=== PATIENT | female | born 1970 | race Caucasian/White ===

== ENCOUNTER → 2020-08-18 09:10 | Outpatient (CLI) | payer OTHER, BC, SELFPAY ==
[2020-08-18 09:29] LABS: Bacteria 0 SEEN /hpf (None Seen); Mucous, Urine 0 SEEN /hpf (<or=2+); Red Blood Cells-Urine 0 SEEN /hpf (0-5); White Blood Cells 0 SEEN /hpf (0-5)
[2020-08-18 12:23] LABS: Absolute Lymphocyte Count 1.49 X10^3/uL (0.83-4.51); Absolute Neutrophil Count 3.3 X10^3/uL (2.0-7.7); Basophil# 0.03 X10^3/uL; Basophil% 0.5 % (0-1); Eosinophil# 0.06 X10^3/uL; Eosinophils% 1.1 % (0-5); Hematocrit 38.4 % (37-47); Hemoglobin 13.1 g/dL (12.0-15.0); Lymphocyte # 1.49 X10^3/ul (4.0); Lymphocyte % 26.7 % (19-41); Mean Corp Hgb Conc 34.1 g/dL (32-36); Mean Corpuscular Volume 93.7 fL (81-99); Mean Platelet Vol. 9.5 fl (6.2-12.0); Monocyte# 0.65 X10^3/uL; Monocyte% 11.6 % (0-10); NRBC Flagged by Analyzer 0 % (0-5); Neutrophil # 3.34 X10^3/uL (2.7-7.7); Neutrophil % 59.7 % (47-70); Platelet Count 324 K/mm3 (150-450); RBC Distribution Width CV 12.1 % (11.6-14.6); RBC Distribution Width SD 42.1 fl (35.1-43.9); White Blood Count 5.6 K/mm3 (4.4-11.0)
[2020-08-18 12:30] LABS: Color, Urine Yellow (Yellow); Glucose, Dipstick Normal (Normal); Ketone-Dipstick Negative (Negative); Leukocyte Esterase-Dipstick Negative /ul (Negative); Nitrite-Dipstick Negative (Negative); Occult Blood-Urine Negative /ul (Negative); Protein-Dipstick Negative (Negative); Urine Bilirubin Dipstick Negative (Negative); Urine Clarity Clear (Clear); Urine Urobilinogen Normal (Normal)
[2020-08-18 12:37] LABS: ALB/GLOB Ratio 1.1 RATIO (0.9-2.4); AST(SGOT) 12 U/L (15-37); Alanine Aminotransfer ALT/SGPT 22 U/L (13-56); Alkaline Phosphatase 82 U/L (45-117); Anion Gap 5 (5-15); BUN 12 mg/dL (7-18); Calcium,Total 8.8 mg/dL (8.5-10.1); Chloride 105 mmol/L (98-107); Creatinine, Serum 0.63 mg/dL (0.55-1.02); EST Glomerular Filtration Rate 106 mL/min (>60); Est Glom Filt Rate - Afr Amer 128 mL/min (>60); Globulin 3.7 g/dL (2.2-4.2); Glucose 86 mg/dL (74-106); Protein, Total 7.7 g/dL (6.4-8.2); Sodium Level 137 mmol/L (136-145)
[2020-08-18 12:41] LABS: Squamous Epithelial Cells - UA 5-10 SEEN /hpf (5-10)
[2020-08-21 12:08] LABS: SJOGREN'S Anti-SS-A test < 0.2 AI (0.0-0.9); SJOGREN'S Anti-SS-B test < 0.2 AI (0.0-0.9); Smith Ab <0.2 AI (0.0-0.9)
[2020-08-21 20:15] LABS: Anti-Nuclear Antibody Test Negative (.); Anti-dsDNA Ab 2 IU/mL (0-9)
== END ==
PROVIDERS: Referring Provider Dermatology; Visit Provider Dermatology
DX: L93.1 Subacute cutaneous lupus erythematosus (principal)
CPT/HCPCS: 36415; 80053; 81001; 85025; 86038; 86225; 86235

== ENCOUNTER 2024-02-27 21:38 | Emergency (ER) | payer BC, SELFPAY ==
[2024-02-27 21:39] VITALS: BP 149/78; PULSE 51; RESP 17; TEMP 36.6; O2SAT 100; BMI 29.5
--- NOTE | 2024-02-27 22:08 | CT_ITS ---
STUDY: CT ABDOMEN AND PELVIS WITH CONTRAST REASON FOR EXAM: Female, 53 years old. RLQ abd pain RADIATION DOSAGE (If Supplied By Facility): CTDIvol = ( 14.32 ) mGy, DLP = ( 746.13 ) mGycm TECHNIQUE: IV 100mL Isovue-370 was administered. Transaxial images were obtained from the dome of the diaphragm to the symphysis pubis in the portal venous phase. Multiplanar coronal and sagittal images were reformatted. Individualized Dose Optimization Techniques Were Used For This CT. COMPARISON: No relevant prior comparison study available FINDINGS: LOWER CHEST: Lung bases are clear. No cardiomegaly or pericardial effusion. LIVER: The liver is normal in size, shape, and attenuation. No focal mass. GALLBLADDER AND BILIARY TREE: The gallbladder is normally distended. No gallstones. No gallbladder wall thickening or edema. No pericholecystic fluid. No intra- or extrahepatic biliary ductal dilation. PANCREAS: No focal cystic or solid mass. SPLEEN: Normal size without focal cystic or solid mass. ADRENAL GLANDS: No nodules. KIDNEYS AND URETERS: Normal renal size and position. No hydronephrosis or nephrolithiasis. PERITONEUM: No ascites or free air. No other fluid collection. BOWEL: The stomach is unremarkable. Normal caliber small bowel. There is no obstruction. No colonic wall thickening or inflammation. Moderate diffuse colonic stool burden. No evidence of acute appendicitis. LYMPH NODES: No enlarged mesenteric or retroperitoneal lymph nodes. VESSELS: The aorta is normal in caliber with mild atherosclerotic calcification. URINARY BLADDER: Unremarkable. REPRODUCTIVE ORGANS: Anteverted uterus with heterogeneous enhancement suggestive of fibroids. No suspicious adnexal mass identified. ABDOMINAL WALL: No discrete abdominal or pelvic wall hernia. BONES: No lytic or blastic abnormality. Mild degenerative changes throughout the spine. CT/Abdomen/Pelvis W IV Cont ONLY IMPRESSION: No acute finding in the abdomen or pelvis. Normal appendix. Moderate colonic stool burden diffusely. Heterogeneous lobulation of the uterus suggestive of fibroid.. Electronically Signed: Parrish Wilcox MD at 23:40 EDT ,
--- NOTE | 2024-02-27 22:18 | EDS_ITS ---
HPI History of Present Illness Chief Complaint: Abd Pain Informant: patient and family Narrative Narrative: Patient is a 53-year-old female with past medical history of hypertension and depression. She states that a few hours ago she noticed some pain in the right lower abdomen. She states she is nauseated but denies any vomiting. She denies any dysuria or hematuria and she denies any loose stool or diarrhea. She states there is been no trauma or excessive activity. However despite resting and taking [id number] medications the pain has persisted and secondary to this she comes in for evaluation. [facility] Medical History Depression Former smoker Hypertension Home Medications ?Medication ?Instructions ?Recorded ?Last Taken ?Type buspirone 10 mg tablet 10 mg PO DAILY 02/27/24 Unknown History desvenlafaxine succinate 50 mg 50 mg PO DAILY 02/27/24 Unknown History tablet,extended release 24 hr hydrochlorothiazide 25 mg tablet 25 mg PO DAILY 02/27/24 Unknown History losartan 100 mg tablet 100 mg PO DAILY 02/27/24 Unknown History meloxicam 15 mg tablet 15 mg PO DAILY PRN pain 02/27/24 Unknown History tizanidine 4 mg tablet 4 mg PO QHS 02/27/24 Unknown History valacyclovir 500 mg tablet 500 mg PO DAILY 02/27/24 Unknown History oxycodone-acetaminophen 5 mg-325 1 tab PO Q6H PRN pain 3 days #12 02/28/24 Unknown Rx mg tablet (Percocet) tabs Allergy/AdvReac Type Severity Reaction Status Date / Time Sulfa (Sulfonamide Allergy Mild Itching Verified 02/27/24 21:39 Antibiotics) Surgical History (Updated 02/27/24 @ 21:55 by Amelia Miranda) History of Social History Smoking Status: Former smoker ROS ROS ED Constitutional Constitutional ED: Denies chills or fever(s) ENT ENT ED: Denies sore throat Cardiovascular Cardiovascular: Denies chest pain Respiratory/Chest Respiratory/Chest: Denies cough or dyspnea Gastrointestinal Gastrointestinal: Reports abdominal pain and nausea; Denies diarrhea or vomiting Genitourinary Genitourinary ED: Denies dysuria or hematuria Musculoskeletal Musculoskeletal: Denies back pain or myalgias Integumentary Denies rash Neurologic Neurologic: Denies headache(s) Hematologic/Lymphatic Hematologic/Lymphatic: Denies easy bleeding or easy bruising EXAM Physical Exam Const Vital Signs: 02/27/24 21:39 Temperature 97.8 F Temperature Source Temporal Pulse Rate 51 L Respiratory Rate 17 Blood Pressure 149/78 H Blood Pressure Mean 101 Pulse Ox 100 Oxygen Delivery Method Room Air Positive well nourished and well developed General Appearance ED: well developed; Negative for pallor HEENT HEENT Narrative: Normocephalic atraumatic Eyes PERRL and EOMs intact bilaterally General Eye ED: Negative for scleral icterus Neck supple Neck Narrative: No nuchal rigidity or meningeal signs Resp normal respiratory effort and clear to auscultation bilaterally Cardio regular rhythm Rate: bradycardia and other Other Details: Bradycardic rate with regular rhythm No murmurs rubs or gallop Radial and carotid pulses equal and symmetric GI non-distended and no masses GI Narrative: Abdomen is soft and nondistended with normal active bowel sounds. Patient has pain with palpation in the right lower quadrant over top McBurney's point with voluntary guarding. No rebound noted. Negative heel strike but positive psoas sign. No peritoneal signs. No pulsatile mass Auscultation: normoactive bowel sounds Palpation: soft Back/Spine no CVA tenderness Extremity normal to inspection Neuro oriented x3, CN's II-XII intact bilaterally and no sensory deficits noted Sensorium / Orientation: alert Motor Exam: strength 5/5 throughout Psych mental status grossly normal Skin no rashes or lesions noted General Skin Exam: Negative for jaundice or pallor MDM MDM MDM Narrative Medical decision making narrative: Patient arrived to the ER mildly hypertensive otherwise with stable vitals. She reported pain in the right lower abdomen without trauma. Differential diagnosis is for UTI versus pyelonephritis versus kidney stone versus appendicitis versus colitis versus atypical biliary colic or acute cholecystitis versus musculoskeletal strain versus ovarian cyst or uterine fibroid. Secondary to his basic labs and a CT scan with IV contrast were. Lab revealed no clinically significant findings and urine showed no sign of infection or blood. CT scan d ocumented mild constipation but otherwise no acute abdominal or pelvic pathology. On reevaluation the patient is resting comfortably she has had resolution of her pain after given morphine in the ER and as her vitals are stable and workup is negative I do not feel there is need for further testing or admission and she is otherwise safe for discharge and can follow-up on an outpatient basis History & Record Review Discussion w/independent historian: Patient Lab Data Attestation: I reviewed the patient's lab results. Labs: Laboratory Results - last 24 hr 02/27/24 02/27/24 22:25 22:40 WBC 6.5 RBC 3.87 L Hgb 12.2 Hct 35.9 L MCV 92.8 MCH 31.5 MCHC 34.0 RDW Std Deviation 44.3 H RDW Coeff of Torres 13.0 Plt Count 229 MPV 9.9 Immature Gran % (Auto) 0.300 Neut % (Auto) 63.2 Lymph % (Auto) 23.7 Wake % (Auto) 11.0 H Eos % (Auto) 1.2 Baso % (Auto) 0.6 Absolute Neuts (auto) 4.1 Absolute Lymphs (auto) 1.53 Nucleated RBC % 0 Sodium 142 Potassium 3.7 Chloride 108 H Carbon Dioxide 27.0 Anion Gap 7 BUN 25 H Creatinine 0.68 Estim Creat Clear Calc 85.22 Est GFR (MDRD) Af Amer 116 Est GFR (MDRD) Non-Af 96 BUN/Creatinine Ratio 36.9 H Glucose 96 Lactic Acid 0.7 Calcium 8.7 Total Bilirubin 0.40 Direct Bilirubin 0.12 AST 19 ALT 79 H Alkaline Phosphatase 121 H Total Protein 7.0 Albumin 3.5 Globulin 3.5 Lipase 24 Urine Color Yellow Urine Clarity Clear Urine pH 6.0 Ur Specific Se[place] 1.020 Urine Protein Negative Urine Glucose (UA) Normal Urine Ketones Negative Urine Occult Blood 25 H Urine Nitrite Negative Urine Bilirubin Negative Urine Urobilinogen Normal Ur Leukocyte Esterase Negative Urine RBC 0-5 SEEN Urine WBC 0 SEEN Ur Squamous Epith Cells 0-5 SEEN Amorphous Sediment 1+ URATE Urine Bacteria 0 SEEN Urine Mucus 0 SEEN Radiography Diagnostic Testing: Clinical Impression(s) from Imaging Studies Abdomen/Pelvis CT 02/27/24 22:08 IMPRESSION: No acute finding in the abdomen or pelvis. Normal appendix. Moderate colonic stool burden diffusely. Heterogeneous lobulation of the uterus suggestive of fibroid.. Electronically Signed: Parrish Wilcox MD at 23:40 EDT , Discharge Plan Triage Chief Complaint: Abd Pain ED Provider: Andes,Mohit Dx/Rx/DC Orders Clinical Impression: Nonspecific abdominal pain, Hypertension, History of depression Instructions: Abdominal Pain Prescriptions: New oxycodone-acetaminophen [Percocet] 5-325 mg tablet 1 tab PO Q6H PRN (Reason: pain) 3 Days Qty: 12 0RF No Action meloxicam 15 mg tablet 15 mg PO DAILY PRN (Reason: pain) buspirone 10 mg tablet 10 mg PO DAILY hydrochlorothiazide 25 mg tablet 25 mg PO DAILY losartan 100 mg tablet 100 mg PO DAILY desvenlafaxine succinate 50 mg tablet extended release 24 hr 50 mg PO DAILY tizanidine 4 mg tablet 4 mg PO QHS valacyclovir 500 mg tablet 500 mg PO DAILY Primary Care Provider: Markie Matt Referrals: Markie Matt MD [Primary Care Provider] - Activity Restrictions/Additional Instructions: Your lab work showed no clinically significant findings such as urinary tract infection or signs of systemic infection and your CT scan did not show any type of intestinal infection such as appendicitis or a kidney stone. Take your home medications as directed and add the pain medication provided by the ER to help control symptoms. Return to the ER should you have any further concerns Print Language: Citizen Of [place] Disposition Disposition: Home, Self Care
[2024-02-27] MEDS: Ondansetron 4 MG/2 ML Vial IV (22:36)
[2024-02-27] MEDS: Morphine 4 MG/ML Syringe IV (22:36)
[2024-02-27] MEDS: 0.9% Normal Saline (1000mL) 1,000 ML 999 ML IV (22:36)
[2024-02-27 22:46] LABS: Absolute Lymphocyte Count 1.53 X10^3/uL (0.83-4.51); Absolute Neutrophil Count 4.1 X10^3/uL (2.0-7.7); Basophil# 0.04 X10^3/uL; Basophil% 0.6 % (0-1); Eosinophil# 0.08 X10^3/uL; Eosinophils% 1.2 % (0-5); Hematocrit 35.9 % (37-47); Hemoglobin 12.2 g/dL (12.0-15.0); Lymphocyte # 1.53 X10^3/ul (0.83-4.51); Lymphocyte % 23.7 % (19-41); Mean Corpuscular Hgb 31.5 pg (27.0-32.0); Mean Corpuscular Volume 92.8 fL (81-99); Mean Platelet Vol. 9.9 fl (6.2-12.0); Monocyte# 0.71 X10^3/uL; NRBC Flagged by Analyzer 0 % (0-5); Neutrophil # 4.07 X10^3/uL (2.7-7.7); Neutrophil % 63.2 % (47-70); Platelet Count 229 K/mm3 (150-450); RBC Distribution Width SD 44.3 fl (35.1-43.9); Red Blood Count 3.87 M/mm3 (4.2-5.4); White Blood Count 6.5 K/mm3 (4.4-11.0)
[2024-02-27 22:47] LABS: Bacteria 0 SEEN /hpf (None Seen); Mucous, Urine 0 SEEN /hpf (<or=2+); White Blood Cells 0 SEEN /hpf (0-5)
[2024-02-27 22:58] LABS: Color, Urine Yellow (Yellow); Glucose, Dipstick Normal (Normal); Ketone-Dipstick Negative (Negative); Leukocyte Esterase-Dipstick Negative /ul (Negative); Nitrite-Dipstick Negative (Negative); Occult Blood-Urine 25 /ul (Negative); Protein-Dipstick Negative (Negative); Urine Bilirubin Dipstick Negative (Negative); Urine Clarity Clear (Clear); Urine Urobilinogen Normal (Normal)
[2024-02-27 22:59] LABS: Lactic Acid 0.7 mmol/L (0.4-1.9)
[2024-02-27 23:10] LABS: AST(SGOT) 19 U/L (15-37); Alanine Aminotransfer ALT/SGPT 79 U/L (13-56); Albumin, Serum 3.5 g/dL (3.2-5.0); Alkaline Phosphatase 121 U/L (45-117); Anion Gap 7 (5-15); BUN 25 mg/dL (7-18); BUN/Creat Ratio 36.9 RATIO (10-20); Bilirubin, Direct 0.12 mg/dL (0.00-0.30); Calcium,Total 8.7 mg/dL (8.5-10.1); Chloride 108 mmol/L (98-107); Creatinine, Serum 0.68 mg/dL (0.55-1.02); EST Glomerular Filtration Rate 96 mL/min (>60); Est Glom Filt Rate - Afr Amer 116 mL/min (>60); Estimated Creatinine Clearance 85.22 ml/min; Globulin 3.5 g/dL (2.2-4.2); Glucose 96 mg/dL (74-106); Lipase 24 U/L (13-75); Potassium 3.7 mmol/L (3.5-5.1); Sodium Level 142 mmol/L (136-145)
[2024-02-27 23:14] LABS: Amorphous Sediment 1+ URATE; Red Blood Cells-Urine 0-5 SEEN /hpf (0-5); Squamous Epithelial Cells - UA 0-5 SEEN /hpf (5-10)
[2024-02-28 00:38] VITALS: BP 130/70; PULSE 60; RESP 16; TEMP 36.6; O2SAT 97
== END 2024-02-28 00:40 | disposition home or self-care (01) ==
PROVIDERS: Emergency Provider Emergency Medicine; PCP Family Medicine; Visit Provider Emergency Medicine
DX: R10.9 Unspecified abdominal pain (principal); I10 Essential (primary) hypertension; Z87.891 Personal history of nicotine dependence; F32.9 Major depressive disorder, single episode, unspecified
CPT/HCPCS: 74177; 80048; 80076; 81001; 83605; 83690; 85025; 96361; 96374; 96375; 99282; J7030; Q9967; A4216; J2405